=== PATIENT | female | born 1955 | race American Indian/Alaskan Native ===

== ENCOUNTER 2016-08-07 14:24 | Outpatient (CLI) | payer OTHER | END 2016-08-07 14:25 | disposition home or self-care (01) | LOC: LABHHL 14:24 | PROVIDERS: ATTEND Surgery | DX: C50.911 Malignant neoplasm of unspecified site of right female breast (principal) | CPT/HCPCS: 88184; 88185; 88305; 88342; 88361 ==

== ENCOUNTER 2016-08-20 08:03 | Outpatient (CLI) | payer OTHER ==
--- NOTE | 2016-08-20 15:41 | Magnetic Resonance Report ---
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 COMPARISON:07/19/16 right mammogram and right axillary ultrasound and 03/20/16 bilateral screening mammogram from [facility], Vivek Wright. TECHNIQUE: Axial 1.0-mm T1 without, axial high resolution 2.0-mm T2 and axial 1.0-mm dynamic Vibrant high-resolution postcontrast T1 fat saturation sequences on a 1.5 Natasha magnet. The examination was performed with an 8 channel dedicated [place] breast coil. Post processing with CAD and subtraction was performed on an [employer] workstation. 18.0 cc of Multihance was injected without incident for the contrast portion of the exam. Consent was obtained prior to the administration of the contrast. FINDINGS: Right: Minimal background parenchymal enhancement. No suspicious mass or suspicious enhancement. An oval smooth 1.6 cm nonenhancing mass at 8 o'clock and a 7 mm nonenhancing mass at 5 o'clock. A single abnormal right axillary level II lymph node has no central fat and measures 4.7 x 2.7 cm. It correlates with the known metastatic lymph node. No suspicious right internal mammary lymph nodes. Left: Minimal background hypoenhancement. No suspicious mass or suspicious enhancement. A 2.5 cm nonenhancing lobulated mass at 7 o'clock near the nipple. No suspicious left axillary or left internal mammary lymph nodes. IMPRESSION: A 4.7 cm biopsy proven right axillary metastatic lymph node and no suspicious mass or enhancement of either breast. Bilateral nonenhancing benign fibroadenomas. RIGHT BI-RADS 6 -- Known Cancer LEFT BI-RADS 2 -- Benign
== END 2016-08-20 08:04 | disposition home or self-care (01) ==
LOC: SPVIMAG 08:03
PROVIDERS: ATTEND Surgery
DX: C77.9 Secondary and unspecified malignant neoplasm of lymph node, unspecified (principal); C50.911 Malignant neoplasm of unspecified site of right female breast
CPT/HCPCS: 0159T; A9577; C8908; 77059

== ENCOUNTER 2016-09-14 09:11 | Outpatient (CLI) | payer OTHER ==
--- NOTE | 2016-09-14 14:00 | Nuclear Medicine Report ---
Whole body bone scan: Breast cancer for evaluation of metastases. Whole-body imaging obtained at 3 hours demonstrate activity in both kidneys and there is a relatively good bone to background ratio. Mild focal areas of increased activity are identified in both a.c. joints, knees, and first digits of both feet. Minimal uptake levels identified in the pedicles of T11 and L3. No abnormal uptake levels otherwise identified. Impressions: No findings suspicious for metastatic disease.
== END 2016-09-14 09:12 | disposition home or self-care (01) ==
LOC: NM 09:11
PROVIDERS: ATTEND Internal Medicine Hematology & Oncology
DX: C50.411 Malignant neoplasm of upper-outer quadrant of right female breast (principal)
CPT/HCPCS: 78306; A9503